=== PATIENT | male | born 1940 | race Caucasian/White ===

== ENCOUNTER 2018-06-11 11:51 | Observation (INO) | payer MEDICARE, OTHER ==
[~2018-06-11] VITALS: Ht 177.8 cm; Wt 99.8 kg
[~2018-06-11 11:51] MED LIST: APR10 PO; CLARINEX5 MG PO; FLONASE16 GM; LISINOPRIL-HCT1 EACH PO; LOPRESSOR100 MG PO; METOPROLOL TART50 MG PO; NORVASC5 MG PO; PROAIR HFA INH8.5 GM INH
[2018-06-11] MEDS ORDERED: ACETAMINOPHEN 325 MG TAB PO STA (11:58)
[2018-06-11] MEDS ORDERED: SODIUM CHLORIDE 0.9% 1000ML 1,000 ML IV STA (11:58)
[2018-06-11] MEDS ORDERED: PIPERACILLIN/TAZO 4.5 GM 100 ML IV ONE (12:00)
[2018-06-11] MEDS ORDERED: VANCOMYCIN 1GM/NS 250 ML 250 ML IV ONE (12:00)
[2018-06-11] MEDS ORDERED: HYDROMORPHONE 1MG/1ML INJ IV PRN (12:00)
[2018-06-11] MEDS ORDERED: PROMETHAZINE 12.5MG/ NACL 0.9% 12.5 MG/50 ML BAG IV PRN (12:00)
[2018-06-11 12:21] LABS: BASOPHILS % 0.3 % (0.0-1.0); HEMATOCRIT 40.8 % (38.2-49.6); HEMOGLOBIN 14.6 g/dL (14.0-18.0); LYMPHOCYTES # (AUTO) 1.1 (1.0-3.2); LYMPHOCYTES % 8.2 % (18.0-39.1); MEAN CORPUSCULAR HEMOGLOBIN 31.1 pg (28-32); MEAN CORPUSCULAR HGB CONC 35.8 g/dL (31-35); MEAN CORPUSCULAR VOLUME 86.8 fL (81-99); MONOCYTES # (AUTO) 0.9 (0.2-0.8); MONOCYTES % 6.6 % (4.4-11.3); NEUTROPHILS # (AUTO) 11.3 (2.1-6.9); NEUTROPHILS % 83.9 % (38.7-80.0); PLATELET COUNT 214 x10e3/uL (140-360)
[2018-06-11] MEDS ORDERED: DEXTROSE 50% SYRINGE 50 ML IV PRN ×2 (12:30→16:30)
[2018-06-11] MEDS ORDERED: ENALAPRILAT IV INJ 1.25 MG/ML VIAL IV ONE (12:38)
[2018-06-11 12:40] LABS: ALBUMIN 3.8 g/dL (3.5-5.0); ALBUMIN/GLOBULIN RATIO 1.2 (0.8-2.0); ANION GAP 18.3 mmol/L (8-16); CALCIUM 9.5 mg/dL (8.4-10.2); CREATININE, SERUM 1.5 mg/dL (0.72-1.25); POTASSIUM 4.3 mmol/L (3.5-5.1)
[2018-06-11] MEDS ORDERED: AMLODIPINE BESYLATE 5 MG TAB PO ONE (12:45)
[2018-06-11 12:46] LABS: CREATINE KINASE MB 3.7 ng/mL (0-5.0)
[2018-06-11] MEDS ORDERED: FLOMAX0.4 MG PO (13:25)
[2018-06-11] MEDS ORDERED: OMEGA-31000 MG (13:25)
[2018-06-11] MEDS ORDERED: METFORMIN HCL500 M2 PO (13:25)
[2018-06-11] MEDS ORDERED: LIPITOR20 MG (13:25)
[2018-06-11] MEDS ORDERED: JANUVIA100 MG PO (13:25)
[2018-06-11] MEDS: ONDANSETRON HCL INJ 2 MG/ML VIAL IV PRN (13:26)
--- NOTE | 2018-06-11 13:59 | Diagnostic Imaging Report ---
EXAM: Abdomen 1 Views INDICATION: \S\look for ileus, constipation COMPARISON: None FINDINGS: Moderate amount of stool in the colon. No dilated loops of small bowel. No renal calculi. Vascular calcifications. No abnormal soft tissue masses. Moderate degenerative changes in the lumbar spine and pelvis. IMPRESSION: Mild amount of stool. No evidence of bowel obstruction or ileus. Signed by: Dr. Brandin Bass M.D. on 06/11/2018 1:56 PM
--- NOTE | 2018-06-11 14:00 | Diagnostic Imaging Report ---
EXAMINATION: CHEST SINGLE (PORTABLE) INDICATION: \S\look for pneumonia COMPARISON: None FINDINGS: AP view TUBES and LINES: None. LUNGS: Lungs are well inflated. Bilateral peribronchial cuffing. There is no evidence of pneumonia or pulmonary edema. PLEURA: No pleural effusion or pneumothorax. HEART AND MEDIASTINUM: The cardiomediastinal silhouette is unremarkable. BONES AND SOFT TISSUES: No acute osseous lesion. Soft tissues are unremarkable. UPPER ABDOMEN: No free air under the diaphragm. IMPRESSION: Bilateral peribronchial cuffing, which could represent viral etiology or reactive airway disease. Signed by: Dr. Brandin Bass M.D. on 06/11/2018 1:56 PM
[2018-06-11] MEDS ORDERED: INSULIN REGULAR, HUMAN 100 UNIT/1 ML 3ML VIAL IV ONE (14:15)
--- NOTE | 2018-06-11 14:17 | Diagnostic Imaging Report ---
ADDENDUM #1 Dose modulation, iterative reconstruction, and/or weight based adjustment of the mA/kV was utilized to reduce the radiation dose to as low as reasonably achievable. Signed by: Dr. Tito Peralta M.D. on 07/18/2018 4:24 PM ORIGINAL REPORT Exam: Maxillofacial CT with IV contrast History:Nasal bleeding status post septoplasty on 06/07/2018 Comparison studies: None Technique: Axial images were obtained through the facial region. Coronal and sagittal images reconstructed from the axial data. Intravenous contrast: 100 cc of Omnipaque 300. Findings: Paranasal sinuses and nasal cavity: Postsurgical changes a nasal septoplasty with surgical packing and bilateral nasal trumpet in place. There are scattered secretions and likely hemorrhage throughout the nasal cavity as well as scattered nonspecific inflammatory mucosal thickening, secretions and likely small hemorrhage in the paranasal sinuses. No rim-enhancing fluid collection/abscess. No gross focal active extravasation IV contrast identified. Soft tissues: No acute abnormalities. Bones: Changes of septoplasty as above. No other fractures. Orbits: Globes: Intact. Extra or intraconal abnormalities: None. Included cervical spine: Disc degeneration from C2 to C6, worse/moderate at C3-C4 and at C5-C6. Mild canal stenosis at C4-C5 due to a disc osteophyte complex. Multilevel facet arthrosis with fused facets from C2 to C4. Moderate foraminal stenosis on the left at C3-C4 and at C4-C5 and bilaterally at C5-C6 due to uncovertebral and facet arthrosis. Other findings: Calcified and soft plaque at the cervical carotid bulbs without hemodynamically significant stenosis. Scattered calcified atherosclerosis throughout the carotid siphons and intradural vertebral arteries. Possible moderate to severe stenosis in the left M1 and/or within a proximal left M2 MCA branch. IMPRESSION: 1. Postsurgical changes of nasal septoplasty with nonspecific mucosal thickening, secretions and likely hemorrhage in the nasal cavity and in the paranasal sinuses. No rim-enhancing fluid collection/abscess. No gross focal extravasation of IV contrast identified. 2. Degenerative changes in the included cervical spine. 3. Scattered cervical and intracranial atherosclerosis. Incompletely evaluated left MCA stenosis. Recommended intracranial CTA or MRA to further evaluate when clinically appropriate. Signed by: Dr. Tito Peralta M.D. on 06/11/2018 2:14 PM
[2018-06-11 14:26] LABS: AMYLASE 20 U/L (25-125); LIPASE 9 U/L (8-78)
[2018-06-11 15:07] LABS: CLARITY,URINE CLEAR (CLEAR); COLOR,URINE YELLOW (YELLOW)
[2018-06-11 15:08] LABS: BILIRUBIN,URINE NEGATIVE (NEGATIVE); KETONES,URINE TRACE (NEGATIVE); LEUKOCYTE ESTERASE ,URINE NEGATIVE (NEGATIVE); NITRITE,URINE NEGATIVE (NEGATIVE); PROTEIN,URINE DIPSTICK TRACE (NEGATIVE); URINE UROBILINOGEN 0.2 mg/dL (0.2 - 1); WBC,URINE (MAN) 0-5 /HPF (0-5)
[2018-06-11] MEDS ORDERED: IOPAMIDOL 370 MG/ML 200 ML INFUS..BTL INJ ONE (15:26)
[2018-06-11] MEDS ORDERED: SODIUM CHLORIDE 0.9% 50ML 50 ML ONE (15:26)
[2018-06-11] MEDS ORDERED: PHENYLEPHRINE HCL 1% NA SPR 15 ML BTL ONE (15:50)
[2018-06-11] MEDS ORDERED: LACTULOSE SYRUP 20 GM/30 ML UDC PO PRN (16:30)
[2018-06-11] MEDS ORDERED: ZOLPIDEM TARTRATE 5 MG TAB PO PRN (16:30)
[2018-06-11] MEDS ORDERED: ACETAMINOPHEN 325 MG TAB PO PRN (16:30)
[2018-06-11] MEDS ORDERED: DIPHENHYDRAMINE HCL INJ 50 MG/ML VIAL IV PRN (16:30)
[2018-06-11] MEDS ORDERED: SODIUM CHLORIDE 0.9% 1000ML 2,000 ML IV ONE (16:30)
[2018-06-11] MEDS ORDERED: ENALAPRILAT IV INJ 1.25 MG/ML VIAL IV PRN (16:30)
[2018-06-11] MEDS ORDERED: BISACODYL 10 MG SUPP PR PRN (16:45)
[2018-06-11] MEDS ORDERED: SOD PHOSPHATE/SOD BIPHOSPHATE ENEMA 132 ML BTL PR ONE (16:45)
[2018-06-11] MEDS ORDERED: MAGNESIUM HYDROXIDE 30 ML UDC PO ONE (16:45)
[2018-06-11] MEDS: FAMOTIDINE 20 MG/2 ML VIAL IV SCH (17:49)
[2018-06-11 18:38] VITALS: BP 196/91
[2018-06-11] MEDS: CLONIDINE HCL 0.2 MG TAB PO PRN (18:40)
[2018-06-11] MEDS ORDERED: GLIMEPIRIDE2 MG PO (19:28)
[2018-06-11] MEDS ORDERED: METOPROLOL SUC100 MG PO (19:28)
[2018-06-11 19:49] VITALS: BP 204/93
[2018-06-11 19:56] VITALS: BP 204/93
[2018-06-11 20:00] VITALS: BP 204/93
[2018-06-11] MEDS ORDERED: ALBUTEROL SULFATE HFA 8GM INHALATION AEROSOL INH PRN (20:15)
[2018-06-11 20:54] VITALS: BP 99/51
[2018-06-11 21:00] VITALS: BP 129/59
[2018-06-11] MEDS: PIPER-TAZ 3.375 GM 50 ML IV SCH (23:55)
[2018-06-12] VITALS (9 sets, daily range): BP systolic 105–176; BP diastolic 57–79
[2018-06-12] MEDS: VANCOMYCIN 1GM/NS 250 ML 250 ML IV SCH ×2 (00:35→13:06)
[2018-06-12] MEDS ORDERED: SODIUM CHLORIDE 0.9% 500ML 500 ML ONE (05:37)
[2018-06-12] MEDS: PIPER-TAZ 3.375 GM 50 ML IV SCH ×4 (05:45→23:32)
[2018-06-12] MEDS: ONDANSETRON HCL INJ 2 MG/ML VIAL IV PRN ×2 (05:57→22:15)
[2018-06-12] MEDS ORDERED: NON-FORMULARY MEDICATION (Desloratadine (Clarinex) 5 MG) PO SCH (09:00)
[2018-06-12] MEDS ORDERED: ATORVASTATIN 20 MG TAB PO SCH (09:00)
[2018-06-12] MEDS ORDERED: NON-FORMULARY MEDICATION (Metoprolol Succinate 1 TAB) PO SCH (09:00)
[2018-06-12] MEDS ORDERED: AMLODIPINE BESYLATE 5 MG TAB PO SCH (09:00)
[2018-06-12] MEDS: GLIMEPIRIDE 2 MG TAB PO SCH (09:40)
[2018-06-12] MEDS: FAMOTIDINE 20 MG/2 ML VIAL IV SCH ×2 (09:40→17:22)
[2018-06-12] MEDS: SITAGLIPTIN 100 MG TAB PO SCH (09:41)
[2018-06-12] MEDS: HYDROCHLOROTHIAZIDE 25 MG TAB PO SCH (09:41)
[2018-06-12] MEDS: METFORMIN HCL 500 MG TAB CR PO SCH ×2 (09:41→17:22)
[2018-06-12] MEDS: LORATADINE 10 MG TAB PO SCH (09:41)
[2018-06-12] MEDS: OMEGA 3 POLYUNSAT FATTY ACIDS 1000 MG SOFTGEL PO SCH (09:41)
[2018-06-12] MEDS: TAMSULOSIN HCL 0.4 MG CAP PO SCH (09:41)
[2018-06-12] MEDS: METOPROLOL SUCCINATE 50 MG TAB XL PO SCH (09:42)
[2018-06-12] MEDS: FLUTICASONE PROPIONATE NASAL SPRAY NS SCH (09:42)
[2018-06-12] MEDS: LISINOPRIL 20 MG TAB PO SCH (09:42)
[2018-06-12] MEDS: SODIUM CHLORIDE 0.9% 1000ML 1,000 ML IV SCH (13:06)
[2018-06-12] MEDS: CLONIDINE HCL 0.2 MG TAB PO PRN (23:32)
[2018-06-13] VITALS (7 sets, daily range): BP systolic 114–168; BP diastolic 51–74
[2018-06-13] MEDS: VANCOMYCIN 1GM/NS 250 ML 250 ML IV SCH ×2 (00:20→12:00)
[2018-06-13] MEDS: SODIUM CHLORIDE 0.9% 1000ML 1,000 ML IV SCH ×2 (01:30→14:40)
[2018-06-13] MEDS: PIPER-TAZ 3.375 GM 50 ML IV SCH ×4 (05:22→23:53)
[2018-06-13] MEDS: LORATADINE 10 MG TAB PO SCH (09:09)
[2018-06-13] MEDS: METFORMIN HCL 500 MG TAB CR PO SCH ×2 (09:09→16:09)
[2018-06-13] MEDS: ATORVASTATIN 40 MG TAB PO SCH (09:09)
[2018-06-13] MEDS: OMEGA 3 POLYUNSAT FATTY ACIDS 1000 MG SOFTGEL PO SCH (09:09)
[2018-06-13] MEDS: AMLODIPINE BESYLATE 10 MG TAB PO SCH (09:09)
[2018-06-13] MEDS: GLIMEPIRIDE 2 MG TAB PO SCH (09:09)
[2018-06-13] MEDS: HYDROCHLOROTHIAZIDE 25 MG TAB PO SCH (09:09)
[2018-06-13] MEDS: LISINOPRIL 20 MG TAB PO SCH (09:09)
[2018-06-13] MEDS: FLUTICASONE PROPIONATE NASAL SPRAY NS SCH (09:09)
[2018-06-13] MEDS: FAMOTIDINE 20 MG/2 ML VIAL IV SCH ×2 (09:09→16:09)
[2018-06-13] MEDS: TAMSULOSIN HCL 0.4 MG CAP PO SCH (09:09)
[2018-06-13] MEDS: SITAGLIPTIN 100 MG TAB PO SCH (09:09)
[2018-06-13] MEDS: METOPROLOL SUCCINATE 50 MG TAB XL PO SCH (09:10)
[2018-06-14] VITALS (7 sets, daily range): BP systolic 134–186; BP diastolic 66–88
[2018-06-14] MEDS: PIPER-TAZ 3.375 GM 50 ML IV SCH ×2 (05:09→11:44)
[2018-06-14] MEDS: AMLODIPINE BESYLATE 10 MG TAB PO SCH (09:00)
[2018-06-14] MEDS: METOPROLOL SUCCINATE 50 MG TAB XL PO SCH (09:00)
[2018-06-14] MEDS: HYDROCHLOROTHIAZIDE 25 MG TAB PO SCH (09:00)
[2018-06-14] MEDS: LISINOPRIL 20 MG TAB PO SCH (09:00)
[2018-06-14 09:15] LABS: BASOPHILS # (AUTO) 0.1 (0.0-0.1); BASOPHILS % 0.5 % (0.0-1.0); EOSINOPHILS # (AUTO) 0.1 (0.0-0.4); EOSINOPHILS % 0.5 % (0.0-6.0); HEMATOCRIT 34.7 % (38.2-49.6); HEMOGLOBIN 12.3 g/dL (14.0-18.0); LYMPHOCYTES # (AUTO) 1.4 (1.0-3.2); LYMPHOCYTES % 15.7 % (18.0-39.1); MEAN CORPUSCULAR HEMOGLOBIN 30.8 pg (28-32); MEAN CORPUSCULAR HGB CONC 35.4 g/dL (31-35); MEAN CORPUSCULAR VOLUME 86.8 fL (81-99); MONOCYTES # (AUTO) 0.5 (0.2-0.8); MONOCYTES % 5.7 % (4.4-11.3); NEUTROPHILS % 76.7 % (38.7-80.0); PLATELET COUNT 173 x10e3/uL (140-360); RED CELL DISTRIBUTION WIDTH 12.8 % (11.7-14.4)
[2018-06-14] MEDS: METFORMIN HCL 500 MG TAB CR PO SCH (09:27)
[2018-06-14] MEDS: LORATADINE 10 MG TAB PO SCH (09:27)
[2018-06-14] MEDS: GLIMEPIRIDE 2 MG TAB PO SCH (09:27)
[2018-06-14] MEDS: ATORVASTATIN 40 MG TAB PO SCH (09:27)
[2018-06-14] MEDS: TAMSULOSIN HCL 0.4 MG CAP PO SCH (09:27)
[2018-06-14] MEDS: FLUTICASONE PROPIONATE NASAL SPRAY NS SCH (09:27)
[2018-06-14] MEDS: FAMOTIDINE 20 MG/2 ML VIAL IV SCH (09:27)
[2018-06-14] MEDS: SITAGLIPTIN 100 MG TAB PO SCH (09:27)
[2018-06-14] MEDS: OMEGA 3 POLYUNSAT FATTY ACIDS 1000 MG SOFTGEL PO SCH (09:28)
[2018-06-14 09:32] LABS: ALANINE AMINOTRANSFERASE 22 IU/L (0-55); ALBUMIN 3.5 g/dL (3.5-5.0); ALBUMIN/GLOBULIN RATIO 1.2 (0.8-2.0); ALKALINE PHOSPHATASE 67 IU/L (40-150); BLOOD UREA NITROGEN 19 mg/dL (7-26); BUN/CREATININE RATIO 16 (6-25); CARBON DIOXIDE 23 mmol/L (22-29); CHLORIDE 104 mmol/L (98-107); CREATININE, SERUM 1.16 mg/dL (0.72-1.25); EST GLOMERULAR FILTRATION RATE > 60 ML/MIN (60-); GLUCOSE 195 mg/dL (74-118); SODIUM 137 mmol/L (136-145)
[2018-06-14] MEDS: VANCOMYCIN 1GM/NS 250 ML 250 ML IV SCH (12:30)
[2018-06-14] MEDS ORDERED: FAMOTIDINE 20 MG TAB PO SCH (16:30)
[2018-06-14] MEDS ORDERED: METFORMIN HCL 500 MG TAB CR PO SCH (17:00)
[2018-06-15] MEDS ORDERED: GLIMEPIRIDE 2 MG TAB PO SCH (08:00)
--- NOTE | 2018-08-06 00:20 | Discharge Summary ---
CHIEF COMPLAINT: Constipation, dehydration. FINAL DIAGNOSES 1. Sinus infection, resolved. 2. Obstructive sleep apnea. 3. Diabetes, type 2. DISPOSITION: Home. A 78-year-old male presents to the ER complaining of abdominal pain, arrived via EMS. No radiation. Localized more in the upper abdomen and the periumbilical area. Associated with nausea. A little bit of anorexia, vomiting. Does have history of diabetes mellitus, subdural hematoma, status post nasal septoplasty. States that his last BM was about 5 days ago, but denies any issues of constipation. Denies any similar symptoms. Underwent workup and evaluation in the ER. The patient was admitted to the facility for care regarding intractable vomiting with nausea, dehydration, and volume depletion. Acute gastritis, possible constipation. The patient was admitted to the med floor, was started out on a clear liquid diet. Started on Zosyn 3.375 along with vancomycin, was given hydromorphone for pain. Daily medications are being continuing as well. Was given further medications for bowel assistance. Laboratory studies showing stable electrolytes. Kidney functions, BUN 33, creatinine 1.50, glucose 264. CBC, hemoglobin 14.6, white cell count 13,000. Patient began feeling better overall. His existing diet was being adjusted to a regular diet, ADA. He was continuing on his antibiotics. White cell count was improving. Followup study was 9000. His BUNs and creatinines were improving as well. Followup studies were showing a BUN of 19, creatinine 1.16. Continued to improve, was in no acute distress, was being cleared for discharge. Will be taken off the IV antibiotics and will continue on p.o. once discharged. The patient able to be released home on 06/14/2018, in good condition. EKGs are showing sinus tachycardia with possible premature atrial complexes with aberrant conduction. Left axis deviation, inferior infarct age undetermined. With discharge, patient will continue on ADA diet. No equipment or supplies were necessary. Drains or Mathe[place] as needed. Activity level was directed by me. He will be following up with ENT the day after discharge. He will be returning to his PCP within 7 to 10 days. MEDS 1. He will be continuing on albuterol sulfate 2 inhalations every 4 hours as needed for shortness of breath. 2. Amlodipine besylate 10 mg daily. 3. Atorvastatin calcium 40 mg daily. 4. Clarinex 5 mg daily. 5. Flonase 1 spray each nares daily. 6. Glimepiride 2 mg daily. 7. Hydralazine 10 mg every 6. 8. Lisinopril/hydrochlorothiazide 20 and 12.5 one tablet daily. 9. Metformin 500 mg twice a day. 10. Metoprolol succinate 100 mg daily. 11. [place] 3 fatty acid 2000-mg capsule daily. 12. Januvia 100 mg daily. 13. Tamsulosin 0.4 mg daily. The patient has recurrence of similar symptoms, he will be getting in touch with his PCP or discussed further with his ENT. Dictated By: YOEL Salinas Job#: [id number] CQ
== END 2018-06-14 14:10 | disposition home or self-care (01) ==
LOC: ER 11:51 → ERHOLD 17:19 → MED/SURG2 18:36
DX: K29.70 Gastritis, unspecified, without bleeding (principal); E86.0 Dehydration; E11.9 Type 2 diabetes mellitus without complications; I10 Essential (primary) hypertension; Z98.890 Other specified postprocedural states
CPT/HCPCS: 31720 ×2; 36415 ×4; 70487; 71045; 74018; 80053 ×2; 80202; 81001; 82150; 82550; 82553; 82948 ×4; 83690; 83880; 84484; 85025 ×2; 87040; 87086; 93005; 94640; 99285; G0378 ×4; J1170; J2405 ×2; J2543 ×5; J3370 ×4; J7030 ×2; J7040; Q9967